=== PATIENT | male | born 1940 | race Caucasian/White ===

== ENCOUNTER 2016-08-02 12:22 | Inpatient (IN) | payer MEDICARE, BC ==
[~2016-08-02] VITALS: Ht 180.3 cm; Wt 76.2 kg
--- NOTE | 2016-08-02 12:22 | NUR ---
Patient is admitted to our MENTAL HEALTH UNIT room 137-a , accepted by Dr. Hein for psych & Dr Lopez for internal medicine needs before this patient came to our hospital. Nurse Soumya of [facility] accepted hands off nursing report. Belongs List completed.
[2016-08-02] MEDS ORDERED: VENL75TA7 PO (12:31)
[2016-08-02] MEDS ORDERED: [UNRECOGNIZED DRUG - CODE] PO (12:31)
[2016-08-02] MEDS ORDERED: LEVO25TA9 PO (12:31)
[2016-08-02] MEDS ORDERED: ARIP10TA17 PO (12:31)
[2016-08-02] MEDS ORDERED: ATOR10TA PO (12:31)
[2016-08-02] MEDS ORDERED: TAMS-3 PO (12:31)
[2016-08-02] MEDS ORDERED: FINA5TAB3 PO (12:31)
[2016-08-02] MEDS ORDERED: MIRT30TA7 PO (12:31)
--- NOTE | 2016-08-02 12:45 | NUR ---
Patient is now waiting for the admitting papers from ER registration staff
[2016-08-02 13:20] VITALS: BP 120/79
[2016-08-02] MEDS ORDERED: CALCIUM CARB/VITAMIN D 500MG-200UNITS TABLET PO SCH (13:30)
[2016-08-02] MEDS ORDERED: MAG HYDROX/AL HYDROX/SIMETH 30 ML LIQUID UDC PO PRN (14:00)
[2016-08-02] MEDS ORDERED: ACETAMINOPHEN 325 MG TABLET PO PRN (14:00)
[2016-08-02] MEDS ORDERED: MAGNESIUM HYDROXIDE 30 ML LIQUID UDC PO PRN (14:00)
--- NOTE | 2016-08-02 14:45 | NUR ---
PT IS ADMITTED FROM ER VIA GURNEY. PT IS DISORIENTED AND CONFUSED. PT IS WITHDRAWN AND HAS MINIMAL INTERACTIONS. PT WAS LIVING AT HOME, BUT DECOMPENSATED AND WAS NOT EATING OR TAKING MEDICATIONS. PT DEVELOPED VISUAL HALLUCINATIONS OF IMAGES OF WATER. PT IS DISORIENTED, DOES NOT KNOW WHAT BROUGHT HIM IN. PT WAS NOT ABLE TO ANSWER ANY QUESTIONS AND WENT TO BED. PT WOKE UP AROUND DINNER TIME, REFUSED DINNER AND WAS PACING IN THE UNIT. PT IS DISORGANIZED AND WALKS INTO WRONG ROOMS. PT NEEDS REDIRECTIONS AND PROMPTING. PT'S WAS NOTIFIED ABOUT HIS ADMISSION. DR. DOTSON AND [employer] WERE NOTIFIED.
[2016-08-02 16:00] VITALS: BP 125/86
[2016-08-02 20:28] VITALS: BP 146/79
[2016-08-02] MEDS: ATORVASTATIN 10 MG TABLET PO SCH (21:16)
[2016-08-02] MEDS: FINASTERIDE 5 MG TABLET PO SCH (21:16)
[2016-08-02] MEDS: CLONAZEPAM 0.5 MG TABLET PO PRN (21:16)
[2016-08-02] MEDS: TAMSULOSIN HCL 0.4 MG CAP.SR.24H PO SCH (21:16)
[2016-08-03] MEDS: LEVOTHYROXINE SODIUM 25 MCG TABLET PO SCH (06:01)
[2016-08-03 06:53] LABS: BASOPHILS % (AUTO) 0.5 % (0.0-2.0); EOSINOPHILS # (AUTO) 0.1 K/uL (0.0-0.7); EOSINOPHILS % (AUTO) 1.9 % (0.0-7.0); HEMATOCRIT 44.3 % (40-50); HEMOGLOBIN 15.1 G/DL (14.0-18.0); LYMPHOCYTES # (AUTO) 0.9 K/UL (0.8-4.8); LYMPHOCYTES % (AUTO) 19.3 % (20.5-51.5); MEAN CORPUSCULAR HGB CONC 34 g/dL (32.0-37.0); MEAN CORPUSCULAR VOLUME 87.9 FL (82.0-92.0); MONOCYTES # (AUTO) 0.3 K/UL (0.1-1.30); MONOCYTES % (AUTO) 5.3 % (0.0-11.0); NEUTROPHILS # (AUTO) 3.5 K/UL (1.8-8.9); PLATELET COUNT (AUTO) 168 K/UL (150-450); RED BLOOD CELL COUNT(AUTO) 5.04 MIL/UL (4.7-6.1); RED CELL DISTRIBUTION WIDTH 13.1 % (11.5-14.5); WHITE BLOOD COUNT (AUTO) 4.8 K/UL (4.0-11.2)
[2016-08-03 07:17] LABS: ALBUMIN 3.9 g/dL (3.4-5.0); BILIRUBIN,TOTAL 0.7 mg/dL (0.2-1.0); CALCIUM 9.3 mg/dL (8.5-10.1); CREATININE 1.1 mg/dL (0.6-1.3); MAGNESIUM 2.2 mg/dL (1.8-2.4); PHOSPHOROUS 4.2 mg/dL (2.5-4.9); POTASSIUM 3.7 mmol/L (3.5-5.1); TOTAL PROTEIN, SERUM 7.1 g/dL (6.4-8.2)
[2016-08-03 07:24] LABS: THYROID STIMULATING HORMONE 3.263 mIU/mL (0.358-3.740)
[2016-08-03 07:30] VITALS: BP 118/75
--- NOTE | 2016-08-03 10:39 | NUR ---
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
[2016-08-03] MEDS ORDERED: VENLAFAXINE XR 150 MG CAP.SR.24H PO SCH (15:30)
[2016-08-03 16:00] VITALS: BP 103/56
[2016-08-03] MEDS: VENLAFAXINE XR 75 MG CAP.SR.24H PO SCH (16:23)
[2016-08-03] MEDS: ARIPIPRAZOLE 10 MG TABLET PO SCH (16:23)
[2016-08-03 19:39] VITALS: BP 110/65
[2016-08-03] MEDS: ATORVASTATIN 10 MG TABLET PO SCH (20:56)
[2016-08-03] MEDS: TAMSULOSIN HCL 0.4 MG CAP.SR.24H PO SCH (20:56)
[2016-08-03] MEDS: MIRTAZAPINE 15 MG TABLET PO SCH (20:57)
[2016-08-03] MEDS: FINASTERIDE 5 MG TABLET PO SCH (20:57)
--- NOTE | 2016-08-03 23:39 | NUR ---
PATIENT RECEIVED IN BED AWAKE. PATIENT IN NO APPARENT DISTRESS WILL CONTINUE TO MONITOR. NO AGGRESSIVE OR COMBATIVE BEHAVIOR WILL CONTINUE TO MONITOR AND REDIRECT. PATIENT INITIALLY REFUSED MEDICATION, AND WAS COMPLAINT WITH HS MEDICATION AFTER EDUCATION ON THE IMPORTANCE OF TAKING MEDICATION. PATIENT REMAINS ISOLATIVE AND WITHDRAWN, PATIENT ENCOURAGED TO EXPRESS FEELINGS AND CONCERNS. PATIENT DENIES VISUAL/AUDITORY HALLUCINATIONS WILL CONTINUE TO MONITOR. PATIENT DENIES PAIN AT THIS TIME,WILL CONTINUE TO MONITOR. PATIENT ABLE TO SPEAK AND UNDERSTAND CYPRIOT. BED IN LOWEST POSITION, BED LOCKED , AND BED ALARM ON WHILE IN BED.
[2016-08-04] MEDS: LEVOTHYROXINE SODIUM 25 MCG TABLET PO SCH (06:11)
[2016-08-04 07:30] VITALS: BP 130/74
[2016-08-04] MEDS: ARIPIPRAZOLE 10 MG TABLET PO SCH ×2 (08:30→17:21)
[2016-08-04] MEDS: VENLAFAXINE XR 75 MG CAP.SR.24H PO SCH (08:30)
--- NOTE | 2016-08-04 10:27 | NUR ---
The patient resides at home with his Chela and his daughter Pham [[address] [place] [address]; ]. ONUR spoke to patient's daughter, Pham ([phone]) and she stated that she would like her father to go to [facility] for inpatient ECT. She stated that the ER MD at [facility] spoke with psychiatrist/ECT specialist Dr. Walter Calvin and asked him to notify the family if a bed becomes available. ONUR informed Pham of other placement options but she stated that she does not want the patient to go to a facility. ONUR will speak with patient, family, and Dr. Hein regarding most appropriate discharge plans. SS will form a safe and proper discharge. Addendum: 08/04/16 at 1028 by LAKESHIA MOHR Initial discharge instructions
[2016-08-04] MEDS: CALCIUM CARB/VITAMIN D 500MG-200UNITS TABLET PO SCH (12:24)
[2016-08-04 15:02] VITALS: BP 114/68
[2016-08-04 20:00] VITALS: BP 134/56
[2016-08-04] MEDS: FINASTERIDE 5 MG TABLET PO SCH (20:25)
[2016-08-04] MEDS: TAMSULOSIN HCL 0.4 MG CAP.SR.24H PO SCH (20:25)
[2016-08-04] MEDS: ATORVASTATIN 10 MG TABLET PO SCH (20:25)
[2016-08-04] MEDS: MIRTAZAPINE 15 MG TABLET PO SCH (20:25)
--- NOTE | 2016-08-04 21:06 | NUR ---
PATIENT RECEIVED PACING THE HALLWAY. PATIENT IN NO APPARENT DISTRESS WILL CONINTUE TO MONITOR. NO AGGRESSIVE OR COMBATIVE BEHAVIOR WILL CONTINUE TO MONITOR AND REDIRECT. PATIENT COMPLAINT WITH HS MEDICATION WITH NO PROMPTING NOTED. PATIENT REMAINS ISOLATIVE AND WITHDRAWN, PATIENT ENCOURAGED TO EXPRESS FEELINGS AND CONCERNS. PATIENT DENIES VISUAL/AUDITORY HALLUCINATIONS WILL CONTINUE TO MONITOR. PATIENT SUSPICIOUS LOOKING OUT OF HIS DOOR, BUT WHEN ASKED, PATIENT REMAINS WITH A FLAT AFFECT AND STATES "NO." PATIENT DENIES PAIN AT THIS TIME,WILL CONTINUE TO MONITOR. PATIENT ABLE TO SPEAK AND UNDERSTAND TURKISH. BED IN LOWEST POSITION, BED LOCKED , AND BED ALARM ON WHILE IN BED.
[2016-08-05] MEDS: TEMAZEPAM 7.5 MG CAPSULE PO PRN (00:20)
[2016-08-05] MEDS: LEVOTHYROXINE SODIUM 25 MCG TABLET PO SCH (06:11)
[2016-08-05 07:30] VITALS: BP 125/78
[2016-08-05] MEDS: VENLAFAXINE XR 75 MG CAP.SR.24H PO SCH (08:14)
[2016-08-05] MEDS: CHOLECALCIFEROL 1,000 UNIT TABLET PO SCH (08:14)
[2016-08-05] MEDS: CALCIUM CARB/VITAMIN D 500MG-200UNITS TABLET PO SCH (08:14)
[2016-08-05] MEDS: ARIPIPRAZOLE 10 MG TABLET PO SCH ×2 (08:14→16:40)
[2016-08-05] MEDS: CLONAZEPAM 0.5 MG TABLET PO PRN (09:02)
[2016-08-05 15:08] VITALS: BP 118/71
[2016-08-05 20:00] VITALS: BP 115/77
[2016-08-05] MEDS: MIRTAZAPINE 15 MG TABLET PO SCH (20:05)
[2016-08-05] MEDS: FINASTERIDE 5 MG TABLET PO SCH (20:05)
[2016-08-05] MEDS: ATORVASTATIN 10 MG TABLET PO SCH (20:05)
[2016-08-05] MEDS: TAMSULOSIN HCL 0.4 MG CAP.SR.24H PO SCH (20:05)
[2016-08-06] MEDS: LEVOTHYROXINE SODIUM 25 MCG TABLET PO SCH (06:38)
[2016-08-06 07:12] LABS: BASOPHILS % (AUTO) 0.6 % (0.0-2.0); EOSINOPHILS # (AUTO) 0.1 K/uL (0.0-0.7); HEMATOCRIT 42.4 % (40-50); HEMOGLOBIN 14.3 G/DL (14.0-18.0); LYMPHOCYTES # (AUTO) 0.8 K/UL (0.8-4.8); LYMPHOCYTES % (AUTO) 18.9 % (20.5-51.5); MEAN CORPUSCULAR HEMOGLOBIN 29.8 UUG (27.0-31.0); MEAN CORPUSCULAR HGB CONC 34 g/dL (32.0-37.0); MEAN CORPUSCULAR VOLUME 88.6 FL (82.0-92.0); MONOCYTES # (AUTO) 0.3 K/UL (0.1-1.30); MONOCYTES % (AUTO) 6.6 % (0.0-11.0); NEUTROPHILS % (AUTO) 71.9 % (38.5-71.5); PLATELET COUNT (AUTO) 168 K/UL (150-450); RED BLOOD CELL COUNT(AUTO) 4.78 MIL/UL (4.7-6.1); RED CELL DISTRIBUTION WIDTH 13.3 % (11.5-14.5); WHITE BLOOD COUNT (AUTO) 4.2 K/UL (4.0-11.2)
[2016-08-06 07:30] VITALS: BP 109/66
[2016-08-06 07:35] LABS: ALBUMIN 3.4 g/dL (3.4-5.0); BILIRUBIN,TOTAL 0.9 mg/dL (0.2-1.0); CALCIUM 9.3 mg/dL (8.5-10.1); MAGNESIUM 2.3 mg/dL (1.8-2.4); PHOSPHOROUS 3.7 mg/dL (2.5-4.9); TOTAL PROTEIN, SERUM 6.4 g/dL (6.4-8.2)
[2016-08-06] MEDS: VENLAFAXINE XR 75 MG CAP.SR.24H PO SCH (08:19)
[2016-08-06] MEDS: CHOLECALCIFEROL 1,000 UNIT TABLET PO SCH (08:20)
[2016-08-06] MEDS: CALCIUM CARB/VITAMIN D 500MG-200UNITS TABLET PO SCH (08:20)
[2016-08-06] MEDS: ARIPIPRAZOLE 10 MG TABLET PO SCH ×2 (08:20→16:29)
[2016-08-06 15:51] VITALS: BP 104/71
[2016-08-06 20:09] VITALS: BP 100/68
[2016-08-06] MEDS: TAMSULOSIN HCL 0.4 MG CAP.SR.24H PO SCH (20:29)
[2016-08-06] MEDS: MIRTAZAPINE 15 MG TABLET PO SCH (20:30)
[2016-08-06] MEDS: ATORVASTATIN 10 MG TABLET PO SCH (20:30)
[2016-08-06] MEDS: FINASTERIDE 5 MG TABLET PO SCH (20:30)
[2016-08-07] MEDS: LEVOTHYROXINE SODIUM 25 MCG TABLET PO SCH (06:15)
[2016-08-07 07:30] VITALS: BP 136/78
[2016-08-07] MEDS: ARIPIPRAZOLE 10 MG TABLET PO SCH ×2 (09:00→16:49)
[2016-08-07] MEDS: VENLAFAXINE XR 75 MG CAP.SR.24H PO SCH (09:00)
[2016-08-07] MEDS: CALCIUM CARB/VITAMIN D 500MG-200UNITS TABLET PO SCH (09:00)
[2016-08-07] MEDS: CHOLECALCIFEROL 1,000 UNIT TABLET PO SCH (09:00)
--- NOTE | 2016-08-07 10:00 | NUR ---
PATIENT REMAINS IN BED REFUSES TO GO TO THE DAY ROOM REFUSED HIS MEDICATIONS ATE ONLY A BITE OF HIS BREAKFAST LOOKS DEPRESSED AND WITHDRAWN AT THIS TIME.WILL CONTINUE TO OBSERVE.
--- NOTE | 2016-08-07 14:30 | NUR ---
DR MONAHAN HERE TO SEE PATIENT AND AWARE THAT PATIENT HAS BEEN REFUSING HIS MEDICATIONS AND WITH POOR APPETITE WITH NO NEW ORDERS AT THIS TIME.
[2016-08-07 15:57] VITALS: BP 92/60
--- NOTE | 2016-08-07 17:00 | NUR ---
I WAS ABLE TO CONVINCE PATIENT TO TAKE HIS MEDICATION CRUSHED IN APPLE SAUCE NEEDED SEVRAL PROMPTING TO TAKE THE MEDICATIONS
[2016-08-07 20:00] VITALS: BP 101/67
[2016-08-07] MEDS: ATORVASTATIN 10 MG TABLET PO SCH (20:00)
[2016-08-07] MEDS: MIRTAZAPINE 15 MG TABLET PO SCH (20:00)
[2016-08-07] MEDS: TAMSULOSIN HCL 0.4 MG CAP.SR.24H PO SCH (20:01)
[2016-08-07] MEDS: FINASTERIDE 5 MG TABLET PO SCH (20:01)
--- NOTE | 2016-08-07 20:49 | NUR ---
PATIENT RECEIVED IN ROOM AWAKE. PATIENT IN NO APPARENT DISTRESS WILL CONTINUE TO MONITOR. NO AGGRESSIVE OR COMBATIVE BEHAVIOR WILL CONTINUE TO MONITOR AND REDIRECT. PATIENT COMPLAINT WITH HS MEDICATION WITH PROMPTING NOTED. PATIENT REMAINS ISOLATIVE AND WITHDRAWN, PATIENT ENCOURAGED TO EXPRESS FEELINGS AND CONCERNS. PATIENT DENIES VISUAL/AUDITORY HALLUCINATIONS WILL CONTINUE TO MONITOR. PATIENT REMAINS WITH A FLAT AFFECT. PATIENT DENIES PAIN AT THIS TIME,WILL CONTINUE TO MONITOR. PATIENT ABLE TO SPEAK AND UNDERSTAND CROATIAN. BED IN LOWEST POSITION, BED LOCKED , AND BED ALARM ON WHILE IN BED.
[2016-08-08] MEDS: LEVOTHYROXINE SODIUM 25 MCG TABLET PO SCH (06:19)
[2016-08-08 07:36] VITALS: BP 122/70
[2016-08-08] MEDS: ARIPIPRAZOLE 10 MG TABLET PO SCH ×2 (08:33→16:02)
[2016-08-08] MEDS: VENLAFAXINE XR 75 MG CAP.SR.24H PO SCH (08:33)
[2016-08-08] MEDS: CALCIUM CARB/VITAMIN D 500MG-200UNITS TABLET PO SCH (08:33)
[2016-08-08] MEDS: CHOLECALCIFEROL 1,000 UNIT TABLET PO SCH (08:34)
--- NOTE | 2016-08-08 10:58 | NUR ---
Prevention Rn Per patient's daughter's request (Pham ), ONUR attempted to contacted psychiatrist/ECT specialist Dr. Walter Calvin (phone number provided by Pham) in order to see if they will be able to admit the patient to their inpatient psychiatric unit at [facility]. ONUR spoke with Rosemary who answered the phone and Rosemary stated that they currently do not have beds available and that they are unable to accept lateral transfers. ONUR informed Rosemary that Dr. Calvin is supposed to be aware of this case and notfiy family is a bed becomes available, however [facility]mary stated that they have no beds at this time. Patient's daughter was made aware that there may not be a bed available for the patient and that she must decide what a second option would be for placement for the patient. Pt's daughter insisted that the patient was able to be transferred from [facility] in July 2015 and that he should be able to be transferred again this time around. ONUR also attempted to call Dr. Calvin at his office number and left a voicemail inquiring about the transfer. Awaiting call back.
[2016-08-08 15:45] VITALS: BP 146/84
[2016-08-08 20:00] VITALS: BP 141/94
[2016-08-08] MEDS: TAMSULOSIN HCL 0.4 MG CAP.SR.24H PO SCH (20:03)
[2016-08-08] MEDS: ATORVASTATIN 10 MG TABLET PO SCH (20:03)
[2016-08-08] MEDS: MIRTAZAPINE 15 MG TABLET PO SCH (20:03)
[2016-08-08] MEDS: FINASTERIDE 5 MG TABLET PO SCH (20:03)
[2016-08-08] MEDS: CLONAZEPAM 0.5 MG TABLET PO PRN (22:19)
[2016-08-09] MEDS: TEMAZEPAM 7.5 MG CAPSULE PO PRN (00:01)
[2016-08-09] MEDS: LEVOTHYROXINE SODIUM 25 MCG TABLET PO SCH (06:16)
[2016-08-09 07:30] VITALS: BP 129/74
--- NOTE | 2016-08-09 08:00 | NUR ---
Awake, confused, oriented to name. Anxious, speech clear but delayed in response. Withdrawn, flat affect.
[2016-08-09] MEDS: CHOLECALCIFEROL 1,000 UNIT TABLET PO SCH (09:00)
[2016-08-09] MEDS: VENLAFAXINE XR 75 MG CAP.SR.24H PO SCH (09:00)
[2016-08-09] MEDS: CALCIUM CARB/VITAMIN D 500MG-200UNITS TABLET PO SCH (09:00)
[2016-08-09] MEDS: ARIPIPRAZOLE 10 MG TABLET PO SCH ×2 (09:00→17:32)
--- NOTE | 2016-08-09 11:32 | NUR ---
Cleaner Carpet And Upholstery SW called the admitting/intake department at the Adult Intensive Care Psychiatry Inpatient Unit and spoke with [place] who stated that their unit is full and that they do not have any beds available for today.
[2016-08-09] MEDS: CLONAZEPAM 0.5 MG TABLET PO PRN (11:34)
--- NOTE | 2016-08-09 11:34 | NUR ---
Restless, agitated, pacing in the hallway, going to other rooms. Redirected. Klonopin given. Calmer after
--- NOTE | 2016-08-09 13:21 | NUR ---
Spoke with daughter of patient, Pham [phone] and advised her that it was unlikely we would be able to transfer her father to [facility] since they have no available beds. She was tearful and stated that the doctors at [facility] told her if she took her father to their ED he would be admitted there but this did not happen. She mentioned several MD names including Dr Keys. These MDS have to date not created a bed for pt. This clinician advised daughter of pt. that [facility] are calling our intake for beds today and that we could not keep her dad here waiting for a bed. Offered her other ECT providers but she said her father had " a bad experience at [facility] " and at [facility] everything is superior to other hospitals. She said her father does see a therapist as an outpatient. She is aware that her father will be discharged soon. Dr Hein also spoke with daughter.
[2016-08-09 15:55] VITALS: BP 104/61
--- NOTE | 2016-08-09 18:00 | NUR ---
Only drank juice, did eat dinner yet, saying he is sleepy. Compliant with taking medications
[2016-08-09] MEDS: ATORVASTATIN 10 MG TABLET PO SCH (20:11)
[2016-08-09] MEDS: TAMSULOSIN HCL 0.4 MG CAP.SR.24H PO SCH (20:11)
[2016-08-09] MEDS: FINASTERIDE 5 MG TABLET PO SCH (20:11)
[2016-08-09] MEDS: MIRTAZAPINE 15 MG TABLET PO SCH (20:12)
[2016-08-09 20:25] VITALS: BP 104/52
[2016-08-10] MEDS: LEVOTHYROXINE SODIUM 25 MCG TABLET PO SCH (06:29)
[2016-08-10 07:30] VITALS: BP 134/81
[2016-08-10] MEDS: ARIPIPRAZOLE 10 MG TABLET PO SCH (08:32)
[2016-08-10] MEDS: CHOLECALCIFEROL 1,000 UNIT TABLET PO SCH (08:32)
[2016-08-10] MEDS: CALCIUM CARB/VITAMIN D 500MG-200UNITS TABLET PO SCH (08:33)
[2016-08-10] MEDS: VENLAFAXINE XR 75 MG CAP.SR.24H PO SCH (08:33)
--- NOTE | 2016-08-10 10:32 | NUR ---
Distresser SW called the admitting/intake department at the Adult Intensive Care Psychiatry Inpatient Unit and spoke with [facility] who stated that their unit is full and that they do not have any beds available for today.
[2016-08-10] MEDS ORDERED: ARIPIPRAZOLE 2 MG TABLET PO SCH (15:15)
[2016-08-10 16:00] VITALS: BP 120/73
[2016-08-10 20:05] VITALS: BP 118/78
[2016-08-10] MEDS: MIRTAZAPINE 15 MG TABLET PO SCH (20:14)
[2016-08-10] MEDS: ARIPIPRAZOLE 5 MG TABLET PO SCH (20:14)
[2016-08-10] MEDS: TAMSULOSIN HCL 0.4 MG CAP.SR.24H PO SCH (20:14)
[2016-08-10] MEDS: FINASTERIDE 5 MG TABLET PO SCH (20:14)
[2016-08-10] MEDS: ATORVASTATIN 10 MG TABLET PO SCH (20:14)
[2016-08-11] MEDS: LEVOTHYROXINE SODIUM 25 MCG TABLET PO SCH (06:28)
[2016-08-11 07:30] VITALS: BP 115/63
[2016-08-11] MEDS: VENLAFAXINE XR 75 MG CAP.SR.24H PO SCH (08:29)
[2016-08-11] MEDS: CHOLECALCIFEROL 1,000 UNIT TABLET PO SCH (08:30)
[2016-08-11] MEDS: ARIPIPRAZOLE 10 MG TABLET PO SCH (08:30)
[2016-08-11] MEDS: CALCIUM CARB/VITAMIN D 500MG-200UNITS TABLET PO SCH (08:30)
--- NOTE | 2016-08-11 10:45 | NUR ---
Geotechnical Laboratory Technician SW called the admitting/intake department at the Adult Intensive Care Psychiatry Inpatient Unit and spoke with [facility] who stated that their unit is full and that they do not have any beds available for today. ONUR called the patient's daughter Pham and informed her that [facility] has not had a bed available since patient's admission. SW informed Pham that the patient will be ready for discharge soon and that there must be a safe and proper discharge plan in place. ONUR asked Pham if she is open to the SW referring the patient to a few SNFs in the event that [facility] does not accept the bed. Pham stated that she needs to talk to her family and the doctors first and that she will let SW know what they decide. SW awaiting call back from jay.
[2016-08-11 16:00] VITALS: BP 123/73
[2016-08-11] MEDS: FINASTERIDE 5 MG TABLET PO SCH (20:06)
[2016-08-11] MEDS: MIRTAZAPINE 15 MG TABLET PO SCH (20:06)
[2016-08-11] MEDS: ATORVASTATIN 10 MG TABLET PO SCH (20:07)
[2016-08-11] MEDS: TAMSULOSIN HCL 0.4 MG CAP.SR.24H PO SCH (20:07)
[2016-08-11] MEDS: ARIPIPRAZOLE 5 MG TABLET PO SCH (20:07)
[2016-08-11 20:20] VITALS: BP 127/70
[2016-08-12] MEDS: LEVOTHYROXINE SODIUM 25 MCG TABLET PO SCH (06:17)
--- NOTE | 2016-08-12 06:34 | NUR ---
GPS: REMAIN CALM AND COOPERATIVE.COMPLIANT WITH MEDS.ASSISTED WITH ADL'S. SLEPT 07:30 HRS THROUGH THE NIGHT. CONTINUE PLAN OF CARE.NO C/O PAIN OR DISCOMFORT THIS TIME.
[2016-08-12 07:30] VITALS: BP 115/68
--- NOTE | 2016-08-12 08:26 | NUR ---
Options Trader SW called the admitting/intake department at the Adult Intensive Care Psychiatry Inpatient Unit and spoke with [facility] who stated that their unit is full and that they do not have any beds available for today.
[2016-08-12] MEDS: ARIPIPRAZOLE 10 MG TABLET PO SCH (08:31)
[2016-08-12] MEDS: CALCIUM CARB/VITAMIN D 500MG-200UNITS TABLET PO SCH (08:32)
[2016-08-12] MEDS: VENLAFAXINE XR 75 MG CAP.SR.24H PO SCH (08:32)
[2016-08-12] MEDS: CHOLECALCIFEROL 1,000 UNIT TABLET PO SCH (08:32)
--- NOTE | 2016-08-12 14:01 | NUR ---
GPS.RN- patient coming out of room today. patient offered different breakfast options this am, refused. patient wondering in and out of rooms today because he wants to look out of windows. patient offered snack and hydration again at this this time, continues to refuse
[2016-08-12 15:04] LABS: BASOPHILS # (AUTO) 0.1 K/uL (0.0-8.0); EOSINOPHILS % (AUTO) 0.4 % (0.0-7.0); HEMATOCRIT 50.3 % (40-50); HEMOGLOBIN 16.1 G/DL (14.0-18.0); LYMPHOCYTES # (AUTO) 0.5 K/UL (0.8-4.8); LYMPHOCYTES % (AUTO) 7.2 % (20.5-51.5); MEAN CORPUSCULAR HEMOGLOBIN 28.5 UUG (27.0-31.0); MEAN CORPUSCULAR HGB CONC 32 g/dL (32.0-37.0); MEAN CORPUSCULAR VOLUME 88.8 FL (82.0-92.0); MONOCYTES # (AUTO) 0.3 K/UL (0.1-1.30); MONOCYTES % (AUTO) 4.1 % (0.0-11.0); NEUTROPHILS # (AUTO) 6.4 K/UL (1.8-8.9); NEUTROPHILS % (AUTO) 87.3 % (38.5-71.5); PLATELET COUNT (AUTO) 227 K/UL (150-450); RED BLOOD CELL COUNT(AUTO) 5.66 MIL/UL (4.7-6.1); RED CELL DISTRIBUTION WIDTH 13.1 % (11.5-14.5); WHITE BLOOD COUNT (AUTO) 7.3 K/UL (4.0-11.2)
[2016-08-12 15:10] LABS: CALCIUM 9.7 mg/dL (8.5-10.1)
[2016-08-12 15:11] LABS: CREATININE 1.4 mg/dL (0.6-1.3)
[2016-08-12 15:15] LABS: ALBUMIN 4.2 g/dL (3.4-5.0); BILIRUBIN,TOTAL 0.9 mg/dL (0.2-1.0); TOTAL PROTEIN, SERUM 7.7 g/dL (6.4-8.2)
[2016-08-12] MEDS: METHYLPHENIDATE HCL 5 MG TABLET PO SCH (17:28)
--- NOTE | 2016-08-12 20:26 | NUR ---
PT RECEIVED IN HIS ROOM LYING IN BED AWAKE, WITHDRAWN AND ISOLATIVE, GUARDED AND FLAT AFFECT, DENIES PAIN, SI/HI. WILL CONTINUE TO MONITOR.
[2016-08-12 20:50] VITALS: BP 100/60
[2016-08-12] MEDS: ARIPIPRAZOLE 5 MG TABLET PO SCH (20:57)
[2016-08-12] MEDS: ATORVASTATIN 10 MG TABLET PO SCH (20:57)
[2016-08-12] MEDS: TAMSULOSIN HCL 0.4 MG CAP.SR.24H PO SCH (20:57)
[2016-08-12] MEDS: MIRTAZAPINE 15 MG TABLET PO SCH (20:57)
[2016-08-12] MEDS: FINASTERIDE 5 MG TABLET PO SCH (20:58)
[2016-08-13] MEDS: LEVOTHYROXINE SODIUM 25 MCG TABLET PO SCH (06:48)
[2016-08-13 07:30] VITALS: BP 121/79
[2016-08-13] MEDS: CHOLECALCIFEROL 1,000 UNIT TABLET PO SCH (10:23)
[2016-08-13] MEDS: ARIPIPRAZOLE 10 MG TABLET PO SCH (10:23)
[2016-08-13] MEDS: CALCIUM CARB/VITAMIN D 500MG-200UNITS TABLET PO SCH (10:23)
[2016-08-13] MEDS: METHYLPHENIDATE HCL 5 MG TABLET PO SCH (10:24)
[2016-08-13] MEDS: VENLAFAXINE XR 75 MG CAP.SR.24H PO SCH (10:26)
--- NOTE | 2016-08-13 14:00 | NUR ---
DR. WILLOUGHBY NOTIFIED PATIENT HAVING PRIYA POOR APPETITE, ONLY DRINK THE SUPPLEMENT AND WATER. STATED TO OBSERVED FURTHER AND CALL HIM SINCE CHEM RESULT YESTERDAY IS NON SIGNIFICANT.
[2016-08-13 15:36] VITALS: BP 120/53
--- NOTE | 2016-08-13 18:34 | NUR ---
PATIENT REMAINS CONFUSED AND SELECTIVELY MUTE ON UNIT GOING IN AND OUT OF OTHER CLIENTS ROOMS NEEDS FREQUENT RE DIRECTION CONTINUE TO MONITOR FOR SAFETY
[2016-08-13] MEDS: ARIPIPRAZOLE 5 MG TABLET PO SCH (20:05)
[2016-08-13] MEDS: FINASTERIDE 5 MG TABLET PO SCH (20:05)
[2016-08-13] MEDS: MIRTAZAPINE 15 MG TABLET PO SCH (20:05)
[2016-08-13] MEDS: ATORVASTATIN 10 MG TABLET PO SCH (20:05)
[2016-08-13] MEDS: TAMSULOSIN HCL 0.4 MG CAP.SR.24H PO SCH (20:05)
[2016-08-13 20:32] VITALS: BP 131/61
[2016-08-14] MEDS: LEVOTHYROXINE SODIUM 25 MCG TABLET PO SCH (06:25)
--- NOTE | 2016-08-14 06:41 | NUR ---
GPS: REMAIN CONFUSED AND DISORIENTED.WONDER IN UNIT.SLEPT 6 HRS THROUGH THE NIGHT.CONTINUE PLAN OF CARE.
[2016-08-14 07:30] VITALS: BP 122/50
[2016-08-14] MEDS: ARIPIPRAZOLE 10 MG TABLET PO SCH (08:24)
[2016-08-14] MEDS: CHOLECALCIFEROL 1,000 UNIT TABLET PO SCH (08:25)
[2016-08-14] MEDS: METHYLPHENIDATE HCL 5 MG TABLET PO SCH ×2 (08:25→13:31)
[2016-08-14] MEDS: CALCIUM CARB/VITAMIN D 500MG-200UNITS TABLET PO SCH (08:25)
[2016-08-14] MEDS: VENLAFAXINE XR 75 MG CAP.SR.24H PO SCH (08:25)
[2016-08-14 16:09] VITALS: BP 103/69
[2016-08-14] MEDS: ARIPIPRAZOLE 5 MG TABLET PO SCH (20:11)
[2016-08-14] MEDS: TAMSULOSIN HCL 0.4 MG CAP.SR.24H PO SCH (20:11)
[2016-08-14] MEDS: MIRTAZAPINE 15 MG TABLET PO SCH (20:11)
[2016-08-14] MEDS: ATORVASTATIN 10 MG TABLET PO SCH (20:11)
[2016-08-14] MEDS: FINASTERIDE 5 MG TABLET PO SCH (20:11)
[2016-08-14 20:30] VITALS: BP 124/90
[2016-08-15] MEDS: LEVOTHYROXINE SODIUM 25 MCG TABLET PO SCH (06:14)
--- NOTE | 2016-08-15 06:24 | NUR ---
GPS: REMAIN CONFUSED AND DISORIENTED.WONDER IN UNIT. SLEPT 8 HRS THROUGH THE NIGHT. COMPLIANT WITH MEDS. CONTINUE PLAN OF CARE.
[2016-08-15 07:30] VITALS: BP 144/82
--- NOTE | 2016-08-15 08:54 | NUR ---
Asbestos Surveyor ONUR called the admitting/intake department at the Adult Intensive Care Psychiatry Inpatient Unit and spoke with [facility] who stated that their unit is full and that they do not have any beds available for today. Addendum: 08/15/16 at 140 by LAKESHIA MOHR ONUR called the patient's daughter Pham today and left her a voicemail informing her that the patient will most likely be discharged very soon. ONUR informed her that [facility] still does not have a bed available and requested that Pham call back and state whether she wants to take the patient home or place him at a SNF. ONUR awaiting a call back since 08/12/16. Addendum: 08/15/16 at 1433 by LAKESHIA MOHR Spoke with Dr. Hein who stated that he spoke with the patient's daughter Pham regarding transferring the patient to [facility] to receive ECT with Dr. Becker, who has agreed to see the patient. Dr. Hein stated that Pham is going to make a decision today. ONUR spoke with Pham who stated that she will be discussing this matter with the rest of her family and will make a decision today and notify the SW today. She was agreeable with the SW initiating the transfer paperwork process. NOUR has faxed a packet to [facility] in intake . Awaiting call back from [facility] and from [facility]. Addendum: 08/15/16 at 1635 by LAKESHIA MOHR Received a call from [facility] at [facility] who stated that the patient has been accepted and that they will most likely have a bed available for the patient tomorrow, 08/16/16. ONUR will follow-up tomorrow.
[2016-08-15] MEDS ORDERED: ARIPIPRAZOLE 10 MG TABLET PO SCH (09:00)
[2016-08-15] MEDS: VENLAFAXINE XR 75 MG CAP.SR.24H PO SCH (09:15)
[2016-08-15] MEDS: CHOLECALCIFEROL 1,000 UNIT TABLET PO SCH (09:15)
[2016-08-15] MEDS: METHYLPHENIDATE HCL 5 MG TABLET PO SCH ×3 (09:15→14:22)
[2016-08-15] MEDS: CALCIUM CARB/VITAMIN D 500MG-200UNITS TABLET PO SCH (09:15)
[2016-08-15] MEDS: ARIPIPRAZOLE 5 MG TABLET PO SCH ×2 (09:16→20:08)
[2016-08-15 15:23] VITALS: BP 140/89
--- NOTE | 2016-08-15 18:13 | NUR ---
pt very bizarre and confused wandering in and out of pt s room attempting to opn front door is redirectable . continue to monitor for safety
[2016-08-15] MEDS: MIRTAZAPINE 15 MG TABLET PO SCH (20:08)
[2016-08-15] MEDS: FINASTERIDE 5 MG TABLET PO SCH (20:08)
[2016-08-15] MEDS: ATORVASTATIN 10 MG TABLET PO SCH (20:09)
[2016-08-15] MEDS: TAMSULOSIN HCL 0.4 MG CAP.SR.24H PO SCH (20:09)
[2016-08-15 20:32] VITALS: BP 136/85
[2016-08-16] MEDS: LEVOTHYROXINE SODIUM 25 MCG TABLET PO SCH (06:22)
--- NOTE | 2016-08-16 06:36 | NUR ---
Non verbal, but compliant w/ meds & cooperative w/ staff. Slept 9 hours today. No acute distress.
[2016-08-16 07:30] VITALS: BP 103/59
[2016-08-16] MEDS: ARIPIPRAZOLE 5 MG TABLET PO SCH (08:59)
[2016-08-16] MEDS: CALCIUM CARB/VITAMIN D 500MG-200UNITS TABLET PO SCH (09:00)
[2016-08-16] MEDS: METHYLPHENIDATE HCL 5 MG TABLET PO SCH ×2 (09:00→12:57)
[2016-08-16] MEDS: VENLAFAXINE XR 75 MG CAP.SR.24H PO SCH (09:00)
[2016-08-16] MEDS: CHOLECALCIFEROL 1,000 UNIT TABLET PO SCH (09:00)
--- NOTE | 2016-08-16 10:29 | NUR ---
Securities Settlement Processor ONUR called the admitting/intake department at the Adult Intensive Care Psychiatry Inpatient Unit and spoke with [facility] who stated that their unit is full and that they do not have any beds available for today. ONUR Called [facility] and spoke with Cezar who stated that they are trying to open up a [place] bed for the patient today. Cezar stated that he will call ONUR back once a bed is available. ONUR still has not received a call back from patient's daughter Pham regarding her decision about sending the patient to [facility] inpatient for ECT. ONUR called the patient's daughter Pham three times today to see if she has made a decision regarding patient's discharge plan however her phone had a busy dial tone each time. ONUR will attempt to call Pham again shortly.
--- NOTE | 2016-08-16 14:12 | NUR ---
Transfer Note: The patient will be transferred today to [facility], Adult Psychiatric Unit [[address] [place] [address]; ] via ambulance at 4:00 pm. Spoke with [facility] in intake who stated that they will be accepting the patient today to bed 2315A, [facility]. Spoke with the patient's daughter Pham and she is aware and agreeable with the discharge plan. The patient will continue to be followed by psychiatrist Dr. Mac Hein at [facility]. The patient will be receiving ECT from Dr. Tu Becker at [facility]. The patient will follow-up with his primary care physician Dr. Keys .
--- NOTE | 2016-08-16 14:20 | NUR ---
Full telephone SBAR report given to ASIA Carpio at [facility].
[2016-08-16 16:10] VITALS: BP 100/70
--- NOTE | 2016-08-16 16:20 | NUR ---
Full SBAR report given to ambulance. Pt discharged with ambulance to [facility]. Pt aware of discharge and verbalized understanding. All belongings reviewed and returned to the pt. Pt stable and nad noted upon discharge.
== END 2016-08-16 16:25 | DRG 885 ==
LOC: ER 12:22 → GPS 13:10
PROVIDERS: ADMIT Psychiatry & Neurology Psychiatry; ATTEND Internal Medicine
DX: F25.9 Schizoaffective disorder, unspecified (principal); E87.0 Hyperosmolality and hypernatremia; F32.3 Major depressive disorder, single episode, severe with psychotic features; E03.9 Hypothyroidism, unspecified; F03.90 Unspecified dementia, unspecified severity, without behavioral disturbance, psychotic disturbance, mood disturbance, and anxiety; N40.0 Benign prostatic hyperplasia without lower urinary tract symptoms; F41.9 Anxiety disorder, unspecified; E55.9 Vitamin D deficiency, unspecified; E78.00 Pure hypercholesterolemia, unspecified; Z79.899 Other long term (current) drug therapy; Z91.14 Patient's other noncompliance with medication regimen; R73.9 Hyperglycemia, unspecified
CPT/HCPCS: 36415; 82306; 83735; 84100; 84443; 85025; 97001; 97116; 97530